=== PATIENT | female | born 1950 | race Caucasian/White ===

== ENCOUNTER 2019-04-27 06:31 | Day surgery (SDC) | payer MEDICARE, OTHER ==
[~2019-04-27] VITALS: Ht 170.2 cm; Wt 136.0 kg
[2019-04-27] VITALS (10 sets, daily range): BP systolic 91–140; BP diastolic 54–79; PULSE 60–72; RESP 15–27; Ht 170.2 cm; Wt 136.0 kg
[~2019-04-27 06:31] MED LIST: ASPI-727; GABA300C; LEVO150T7; LEVO150T87; LISI10TA2; LORA-407; SIMV20TA2
[2019-04-27] MEDS ORDERED: IMIP25TA3 PO (07:21)
[2019-04-27] MEDS ORDERED: NITROFURANTOIN (07:21)
--- NOTE | 2019-04-27 07:27 | PREAC ---
Date/Time of Note Date/Time of Note DATE: 04/27/19 TIME: 07:25 Anesthesia Eval and Record Evaluation Time Pre-Procedure Interview DATE: 04/27/19 TIME: 07:25 Age 69 Sex female NPO: 8 hrs Preoperative diagnosis Colon screening, H/O irritable bowel syndrome Planned procedure Colonoscopy Past Medical History Past Medical History: Includes Cardio: HTN, Dyslipidemia Endo: Diabetes, Hypothyroid (S/P total thyroidectomy) GI: Morbid obesity Surgery & Anesthesia Issues No known issue Meds Anticoagulation: No Beta Randell within 24 hr: No Reason Beta Randell not given: Pt. not on B-Randell Reported Medications Imipramine Hcl* (Imipramine Hcl*) 25 Mg Tablet, 25 MG PO HS, TAB 04/27/19 [nitrofurantoin at hs] No Conflict Check 04/27/19 Gabapentin* (Neurontin*) 300 Mg Capsule 04/16/11 Levothyroxine Sodium* (Levothyroxine Sodium*) 150 Mcg Tablet 04/16/11 Loratadine (Claritin) 10 Mg Tablet 04/16/11 Lisinopril* (Lisinopril*) 10 Mg Tablet 04/16/11 Simvastatin (Simvastatin) 20 Mg Tablet 04/16/11 Aspirin (Adult Aspirin) 81 Mg Tab.chew 04/16/11 Levothyroxine Sodium* (Synthroid*) 150 Mcg Tablet 05/26/10 Meds reviewed: Yes Allergies Coded Allergies: Penicillins (Verified Allergy, Mild, rash, 04/27/19) Sulfa (Sulfonamide Antibiotics) (Verified Allergy, Mild, rash, 04/27/19) erythromycin base (Verified Allergy, Mild, rash, 04/27/19) Uncoded Allergies: codiene (Adverse Reaction, Mild, vomitting, 05/26/10) Allergies Reviewed: Yes Labs/Studies Labs Reviewed: Reviewed by anesthesiologist test: N/A Pre-procedure Exam Airway: Adequate mouth opening Mallampati: Mallampati II Teeth: Normal Lung: Normal Heart: Normal ASA Physical Status ASA physical status: 3 Emergency: None Planned Anesthetic General/MAC: MAC Planned Pain Management Parenteral pain med Pre-operative Attestations Prior to commencing anesthesia and surgery, the patient was re-evaluated, there was verification of: *The patient's identity *The results of appropriate recent lab work and preoperative vital signs *The above evaluation not changing prior to induction *Anesthetic plan, risk benefits, alternative and complications discussed with patient/family; questions answered; patient/family understands, accepts and wishes to proceed. GENESIS PHAN MD Apr 27, 2019 07:27
[2019-04-27] MEDS ORDERED: FENTAnyl 50 MCG/ML VIAL IV PRN ×3 (07:30)
[2019-04-27] MEDS ORDERED: PROPOFOL 40 ML ONE (07:35)
--- NOTE | 2019-04-27 08:44 | OPR ---
Date/Time of Note Date/Time of Note DATE: 04/27/19 TIME: 08:40 Operative Report Preoperative Diagnosis change in bowell habits r/o colitis colorectal neoplasm Postoperative Diagnosis nodukar vrectum thick cecal fold Operation/Procedure Performed colonoscopy Surgeon see signature line Supervisor Hot Dip Plating none Anesthesia Type: MAC Anesthesiologist: GENESIS PHAN MD Estimated Blood Loss: none Transfusion none Specimen colon bx Grafts/Implants none Tubes/Drains none Complications none Pt Condition Post Procedure: stable Disposition: PACU Indications change in bowel habits r/o colitis vs colorectal neoplasm Procedure Description colonoscopy and bx done of cecal fold and rectum GONZÁLEZ STERN MD Apr 27, 2019 08:44
[2019-04-27] MEDS ORDERED: PROPOFOL 20 ML ONE (08:56)
--- NOTE | 2019-04-27 10:11 | PAC ---
Date/Time of Note Date/Time of Note DATE: 04/27/19 TIME: 10:11 Post-Anesthesia Notes Post-Anesthesia Note Last documented vital signs Vital Signs Date Temp Pulse Resp B/P (MAP) Pulse Ox O2 O2 Flow FiO2 Time Delivery Rate 04/27/19 96.9 16 109/54 96 Room Air 09:25 (72) 04/27/19 60 09:16 Activity: WNL Respiratory function: WNL Cardiovascular function: WNL Mental status: Baseline Pain reasonably controlled: Yes Hydration appropriate: Yes Nausea/Vomiting absent: Yes GENESIS PHAN MD Apr 27, 2019 10:11
== END 2019-04-27 10:19 | disposition home or self-care (01) ==
LOC: GIL 06:31
PROVIDERS: ATTEND Internal Medicine Gastroenterology
DX: R19.4 Change in bowel habit (principal); I10 Essential (primary) hypertension; E11.9 Type 2 diabetes mellitus without complications; E03.9 Hypothyroidism, unspecified; Z79.82 Long term (current) use of aspirin
CPT/HCPCS: 82962; 88305; 88313